=== PATIENT | female | born 1965 | race Two or more races ===

== ENCOUNTER 2016-09-07 03:10 | Inpatient (IN) | payer OTHER ==
[~2016-09-07] VITALS: Ht 154.9 cm; Wt 74.4 kg
[~2016-09-07 03:10] MED LIST: LAC30LQ PO
[2016-09-07 04:16] LABS: Albumin 3.7 g/dL (3.4-5.0); BUN/Creatinine Ratio 12.7; Bilirubin, Total 1.6 mg/dL (0.2-1.0); Calcium 8.9 mg/dL (8.5-10.1); Potassium 4.1 mmol/L (3.5-5.1); Total Protein 7.3 g/dL (6.4-8.2)
[2016-09-07 04:20] LABS: Urine Bilirubin Negative (Negative); Urine Blood Negative /uL (Negative); Urine Color Yellow (Yellow); Urine Glucose Normal (Normal); Urine Ketone Negative (Negative); Urine Mucus FEW (None Seen); Urine Nitrite Negative (Negative); Urine RBC 2 /hpf (0 - 4); Urine Squamous Epithelial Cell MOD /hpf (<5); Urine Urobilinogen Normal (Negative); Urine pH 6.5 (5.0-8.0)
[2016-09-07 04:21] LABS: Hematocrit 45.5 % (36.0-46.0); Hemoglobin 15.1 g/dL (12.2-16.2); Mean Corpuscular Hemoglobin 29.3 pg (28.0-32.0); Mean Corpuscular Hgb Conc. 33.2 g/dL (32.0-36.0); Mean Corpuscular Volume 88.2 fL (80.0-100.0); Mean Platelet Volume 10.1 fL (7.4-10.4); Platelet Count (auto) 345 10^3/uL (140-450); Red Cell Distribution Width 15.4 % (11.6-16.0); SUSPECT VIEW TRANSMISSION; White Blood Cell 14.6 10^3/uL (4.4-10.8)
[2016-09-07 04:37] LABS: Metamyelocytes % 0; Myelocytes % 0; Promyelocytes % 0; Reactive Lymphocytes 0
[2016-09-07 05:09] LABS: Giant Platelets Few; Ovalocytes FEW; Platelet Estimate Adequate
[2016-09-07] MEDS ORDERED: ONDANSETRON HCL 4 MG/2 ML VIAL IV ONE (06:45)
[2016-09-07] MEDS ORDERED: SODIUM CHLORIDE 0.9% 1,000 ML IV ONE (06:45)
[2016-09-07] MEDS ORDERED: MORPHINE SULFATE 4 MG/ML SYRG IV ONE (06:45)
[2016-09-07] MEDS ORDERED: GASTROGRAFIN 120 ML SOL ONE (07:19)
[2016-09-07] MEDS ORDERED: metroNIDAZOLE 500MG/100ML 100 ML IV ONE (08:00)
[2016-09-07] MEDS ORDERED: TEMAZEPAM 15 MG CAP PO PRN (10:15)
[2016-09-07] MEDS ORDERED: HYDROmorphone HCL 2 MG/ML VL IV ONE (10:15)
[2016-09-07] MEDS ORDERED: cefTRIAXone 1GM/50ML D5W 50 ML IV ONE (10:15)
[2016-09-07] MEDS ORDERED: FAMOTIDINE (10MG/ML) 2ML VL IV ONE (10:15)
[2016-09-07] MEDS: SODIUM CHLORIDE 0.9% 1,000 ML IV SCH ×3 (10:54→21:27)
[2016-09-07 11:42] VITALS: BP 126/78
[2016-09-07] MEDS: HYDROmorphone HCL 2 MG/ML VL IV PRN ×3 (12:15→20:21)
[2016-09-07] MEDS: metroNIDAZOLE 500MG/100ML 100 ML IV SCH (16:09)
[2016-09-07 17:00] VITALS: BP 119/64
[2016-09-07 20:00] VITALS: BP 113/69
[2016-09-07] MEDS: FAMOTIDINE (10MG/ML) 2ML VL IV SCH (21:27)
[2016-09-07 22:00] VITALS: BP 123/109
[2016-09-08] MEDS: metroNIDAZOLE 500MG/100ML 100 ML IV SCH ×4 (00:49→17:41)
[2016-09-08] MEDS: HYDROmorphone HCL 2 MG/ML VL IV PRN ×6 (00:50→22:44)
[2016-09-08 05:00] VITALS: BP 110/65
[2016-09-08 07:04] LABS: Basophils # (auto) 0.1 uL; Basophils % (auto) 0.4 % (0.0-2.0); Eosinophils # (auto) 0.2 uL; Eosinophils % (auto) 1.5 % (0.0-7.0); Hematocrit 37.2 % (36.0-46.0); Hemoglobin 12.3 g/dL (12.2-16.2); Lymphocytes % (auto) 19.4 % (10.0-50.0); Mean Corpuscular Hemoglobin 29.4 pg (28.0-32.0); Mean Corpuscular Hgb Conc. 33.2 g/dL (32.0-36.0); Mean Corpuscular Volume 88.5 fL (80.0-100.0); Mean Platelet Volume 9.8 fL (7.4-10.4); Monocytes # (auto) 1.4 uL; Monocytes % (auto) 8.9 % (0.0-12.0); Neutrophils # (auto) 10.7 uL; Neutrophils % (auto) 69.8 % (37.0-80.0); Platelet Count (auto) 296 10^3/uL (140-450); Red Cell Distribution Width 15.3 % (11.6-16.0); SUSPECT VIEW TRANSMISSION; White Blood Cell 15.4 10^3/uL (4.4-10.8)
[2016-09-08 07:32] LABS: Albumin 2.7 g/dL (3.4-5.0); BUN/Creatinine Ratio 14.8; Bilirubin, Total 1.9 mg/dL (0.2-1.0); Calcium 7.2 mg/dL (8.5-10.1); Potassium 3.6 mmol/L (3.5-5.1); Total Protein 5.4 g/dL (6.4-8.2)
[2016-09-08 08:57] VITALS: BP 109/73
[2016-09-08] MEDS ORDERED: cefTRIAXone 1GM/50ML D5W 50 ML IV SCH (09:00)
[2016-09-08] MEDS: FAMOTIDINE (10MG/ML) 2ML VL IV SCH ×2 (11:13→22:32)
[2016-09-08] MEDS: cefTRIAXone 1GM/50ML D5W 50 ML IV SCH (11:14)
[2016-09-08] MEDS: SODIUM CHLORIDE 0.9% 1,000 ML IV SCH ×2 (11:15→20:29)
[2016-09-08 12:06] LABS: Giant Platelets Few; Platelet Estimate Adequate
[2016-09-08 13:00] VITALS: BP 112/71
[2016-09-08 17:00] VITALS: BP 110/68
[2016-09-08 21:56] VITALS: BP 117/74
[2016-09-09] MEDS: SODIUM CHLORIDE 0.9% 1,000 ML IV SCH ×2 (03:49→11:45)
[2016-09-09] MEDS: HYDROmorphone HCL 2 MG/ML VL IV PRN ×2 (04:27→10:22)
[2016-09-09 04:55] VITALS: BP 118/75
[2016-09-09 06:02] LABS: Basophils # (auto) 0 uL; Basophils % (auto) 0.4 % (0.0-2.0); Eosinophils # (auto) 0.3 uL; Eosinophils % (auto) 3.1 % (0.0-7.0); Hematocrit 37.3 % (36.0-46.0); Hemoglobin 12.2 g/dL (12.2-16.2); Lymphocytes # (auto) 2.4 uL; Lymphocytes % (auto) 22.1 % (10.0-50.0); Mean Corpuscular Hemoglobin 29.3 pg (28.0-32.0); Mean Corpuscular Hgb Conc. 32.8 g/dL (32.0-36.0); Mean Corpuscular Volume 89.3 fL (80.0-100.0); Mean Platelet Volume 9.5 fL (7.4-10.4); Monocytes % (auto) 8.9 % (0.0-12.0); Neutrophils # (auto) 7.2 uL; Neutrophils % (auto) 65.5 % (37.0-80.0); Platelet Count (auto) 307 10^3/uL (140-450); Red Cell Distribution Width 15.4 % (11.6-16.0); SUSPECT VIEW TRANSMISSION
[2016-09-09 06:18] LABS: BUN/Creatinine Ratio 8.3; Calcium 7.3 mg/dL (8.5-10.1); Potassium 3.6 mmol/L (3.5-5.1)
[2016-09-09 08:55] VITALS: BP 114/72
[2016-09-09] MEDS: metroNIDAZOLE 500MG/100ML 100 ML IV SCH (09:41)
[2016-09-09] MEDS: cefTRIAXone 1GM/50ML D5W 50 ML IV SCH (10:21)
[2016-09-09] MEDS: FAMOTIDINE (10MG/ML) 2ML VL IV SCH (10:21)
[2016-09-09 12:40] VITALS: BP 124/76
[2016-09-09 14:41] VITALS: BP 124/76
== END 2016-09-09 16:00 | disposition home or self-care (01) | DRG 872 ==
LOC: ER 03:13 → OVERFLOW 03:14 → EAST 11:08 → WEST WING 14:15
PROVIDERS: ADMIT Internal Medicine; ATTEND Internal Medicine
DX: A41.9 Sepsis, unspecified organism (principal); K56.60 Unspecified intestinal obstruction; N39.0 Urinary tract infection, site not specified; E44.0 Moderate protein-calorie malnutrition; D25.9 Leiomyoma of uterus, unspecified; E86.0 Dehydration; F17.210 Nicotine dependence, cigarettes, uncomplicated; Z90.49 Acquired absence of other specified parts of digestive tract; Z90.81 Acquired absence of spleen; N18.2 Chronic kidney disease, stage 2 (mild); K43.9 Ventral hernia without obstruction or gangrene; N18.9 Chronic kidney disease, unspecified; Z87.440 Personal history of urinary (tract) infections
CPT/HCPCS: 36415; 71010; 74176; 74250; 80048; 80053; 81001; 82150; 83690; 85007; 85025; 85027; 87040; 87086; 93005; 96361; 96365; 96375; J0696; J2405; J3490